=== PATIENT | male | born 1950 | race Two or more races ===

== ENCOUNTER 2021-03-21 11:57 | Inpatient (IN) | payer MEDICARE, OTHER ==
[~2021-03-21] VITALS: Ht 182.9 cm; Wt 97.0 kg
[2021-03-21] MEDS ORDERED: SODIUM CHLORIDE 0.9% 500 ML IVB ONE (12:15)
[2021-03-21] MEDS ORDERED: BACITRACIN TOP OINT 1 UD PKG TOP ONE (12:15)
[2021-03-21 13:18] LABS: Basophils # (auto) 0 10 ^3/uL (0-0.2); Basophils % (auto) 0.5 % (0.0-2.0); Eosinophils # (auto) 0 10 ^3/uL (0-0.8); Eosinophils % (auto) 0.2 % (0.0-7.0); Hematocrit 45.9 % (41.0-53.0); Hemoglobin 16.1 g/dL (13.5-17.5); Lymphocytes # (auto) 1.4 10 ^3/uL (0.4-5.4); Lymphocytes % (auto) 16.2 % (10.0-50.0); Mean Corpuscular Hemoglobin 31.3 pg (28.0-32.0); Mean Corpuscular Hgb Conc. 35.1 g/dL (32.0-36.0); Mean Corpuscular Volume 89.4 fL (80.0-100.0); Monocytes # (auto) 0.5 10 ^3/uL (0-1.3); Monocytes % (auto) 5.4 % (0.0-12.0); Neutrophils # (auto) 6.7 10 ^3/uL (1.6-8.6); Neutrophils % (auto) 77.7 % (37.0-80.0); Nucleated Red Blood Cells % 0.2 %; Red Blood Cells 5.14 10^6/uL (4.5-5.90); Red Cell Distribution Width 13.4 % (11.8-14.3); White Blood Cell 8.6 10^3/uL (4.4-10.8)
[2021-03-21 13:24] LABS: INR 0.99 (0.9-1.15); Partial Thromboplastin Time 26.2 sec (23.6-33.0)
[2021-03-21 14:18] LABS: Potassium 3.8 mmol/L (3.5-5.1)
[2021-03-21 14:26] LABS: Albumin 3.9 g/dL (3.4-5.0); BUN/Creatinine Ratio 13.9; Bilirubin, Total 0.6 mg/dL (0.2-1.0); Calcium 8.7 mg/dL (8.5-10.1); Total Protein 7.2 g/dL (6.4-8.2)
[2021-03-21] MEDS ORDERED: ASPirin 81 mg TAB PO ONE (15:00)
[2021-03-21] MEDS ORDERED: ACETAMINOPHEN 325 MG TAB PO PRN (15:45)
[2021-03-21] MEDS ORDERED: DEXTROSE (50%) 50ML SYRG IV PRN (15:45)
[2021-03-21] MEDS ORDERED: NITROGLYCERIN 0.4 MG SL TAB SL PRN (15:45)
[2021-03-21] MEDS ORDERED: HYDROcodone-ACET 5/325MG TAB PO PRN (15:45)
[2021-03-21] MEDS ORDERED: MORPHINE SULFATE INJECTION 2 MG/ML SYRG IV PRN ×2 (15:45)
[2021-03-21] MEDS ORDERED: SODIUM CHLORIDE 0.9% 1,000 ML IV SCH (15:45)
[2021-03-21 16:33] LABS: Urine Bacteria NONE SEEN /hpf (None Seen); Urine Blood Negative /uL (Negative); Urine Mucus FEW (None Seen); Urine Specific Gravity 1.024 (1.001-1.035); Urine WBC 1 /hpf (0 - 3)
[2021-03-21 16:45] LABS: Amphetamine Screen, Urine NEGATIVE (NEGATIVE); Barbiturate Scree,Urine NEGATIVE (NEGATIVE); Benzodiazephine Screen, Urine NEGATIVE (NEGATIVE); Cannabinoid Screen, Urine NEGATIVE (NEGATIVE); Cocaine Screen, Urine NEGATIVE (NEGATIVE); Opiate Scree,Urine NEGATIVE (NEGATIVE); Phencyclidine Screen, Urine NEGATIVE (NEGATIVE)
[2021-03-21] MEDS ORDERED: cloNIDine HCL 0.1 MG TAB PO PRN ×2 (16:45→18:45)
[2021-03-21] MEDS ORDERED: THIAMINE 100mg/ml INJ (200mg/2ml VIAL) IM ONE (16:45)
[2021-03-21] MEDS ORDERED: CYANOCOBALAMIN (B-12) 1000 MCG/1 ML VIAL IM ONE (16:45)
[2021-03-21] MEDS: ACCU-CHEK COMFORT CURVE STRIP VI SCH ×2 (16:51→22:02)
[2021-03-21] MEDS ORDERED: FOLIC ACID 1 MG, MULTIPLE VITAMIN 10 ML, MAGNESIUM SULF SDV 50% 8 MEQ, THIAMINE INJ 100... INJ ONE ×5 (17:00)
[2021-03-21] MEDS: InsuLIN REG 1unit/0.01ml Soln (100units/ml) SC SCH ×2 (17:01→22:00)
[2021-03-21] MEDS ORDERED: CLOPIDOGREL BISULFATE 75 MG TAB PO ONE (18:45)
[2021-03-21 20:14] VITALS: BP 184/91
[2021-03-21] MEDS: hydrALAZINE HCL 10 MG TAB PO PRN (20:50)
[2021-03-21 22:00] VITALS: BP 160/86
[2021-03-21] MEDS ORDERED: ATORVASTATIN 20 MG TAB PO SCH (22:00)
[2021-03-22 04:51] VITALS: BP 148/93
[2021-03-22] MEDS: InsuLIN REG 1unit/0.01ml Soln (100units/ml) SC SCH ×4 (06:12→21:11)
[2021-03-22] MEDS: ACCU-CHEK COMFORT CURVE STRIP VI SCH ×4 (06:12→21:04)
[2021-03-22 07:04] LABS: Basophils # (auto) 0 10 ^3/uL (0-0.2); Basophils % (auto) 0.6 % (0.0-2.0); Eosinophils # (auto) 0.1 10 ^3/uL (0-0.8); Eosinophils % (auto) 1.8 % (0.0-7.0); Hematocrit 41.6 % (41.0-53.0); Hemoglobin 14.5 g/dL (13.5-17.5); Lymphocytes # (auto) 1.8 10 ^3/uL (0.4-5.4); Lymphocytes % (auto) 32.2 % (10.0-50.0); Mean Corpuscular Hemoglobin 31.1 pg (28.0-32.0); Mean Corpuscular Hgb Conc. 34.8 g/dL (32.0-36.0); Mean Corpuscular Volume 89.4 fL (80.0-100.0); Monocytes # (auto) 0.5 10 ^3/uL (0-1.3); Monocytes % (auto) 9.3 % (0.0-12.0); Neutrophils # (auto) 3.2 10 ^3/uL (1.6-8.6); Neutrophils % (auto) 56.1 % (37.0-80.0); Nucleated Red Blood Cells % 0.2 %; Red Blood Cells 4.66 10^6/uL (4.5-5.90); Red Cell Distribution Width 13.2 % (11.8-14.3); White Blood Cell 5.7 10^3/uL (4.4-10.8)
[2021-03-22 07:13] LABS: Potassium 3.9 mmol/L (3.5-5.1)
[2021-03-22 07:19] LABS: Albumin 3.6 g/dL (3.4-5.0); BUN/Creatinine Ratio 11.7; Bilirubin, Total 0.8 mg/dL (0.2-1.0); Calcium 8.4 mg/dL (8.5-10.1); Total Protein 6.7 g/dL (6.4-8.2)
[2021-03-22 09:00] VITALS: BP 169/95
[2021-03-22] MEDS ORDERED: ENOXAPARIN SOD 40 MG/0.4 ML SYRINGE SC SCH (10:00)
[2021-03-22] MEDS ORDERED: SPIRONOLACTONE 25 MG TAB PO SCH (10:00)
[2021-03-22] MEDS: ASPirin 81 mg TAB PO SCH (10:02)
[2021-03-22] MEDS: LOSARTAN POTASSIUM 50 MG TAB PO SCH (10:05)
[2021-03-22] MEDS ORDERED: CLOPIDOGREL BISULFATE 75 MG TAB PO ONE (10:45)
[2021-03-22] MEDS ORDERED: chlordiazePOXIDE HCL 25 MG CAP PO SCH (10:45)
[2021-03-22] MEDS ORDERED: FOLIC ACID 1 MG TAB PO ONE (11:30)
[2021-03-22] MEDS ORDERED: MULTIPLE VITAMIN TAB PO ONE (11:30)
[2021-03-22] MEDS ORDERED: THIAMINE HCL 100 MG TAB PO ONE (11:30)
[2021-03-22 13:00] VITALS: BP 198/92
[2021-03-22] MEDS ORDERED: IOHEXOL 350 MG/ML 100ML IJ ONE (14:03)
[2021-03-22] MEDS: chlordiazePOXIDE HCL 25 MG CAP PO SCH ×2 (14:41→21:04)
[2021-03-22] MEDS: GABAPENTIN 100 MG CAP PO SCH ×2 (15:36→21:06)
[2021-03-22] MEDS: hydrALAZINE HCL 10 MG TAB PO PRN ×2 (16:10→21:07)
[2021-03-22 17:00] VITALS: BP 166/90
[2021-03-22] MEDS: metFORMIN HYDROCHLORIDE 500 MG TAB PO SCH (18:00)
[2021-03-22] MEDS: ATORVASTATIN 20 MG TAB PO SCH (21:06)
[2021-03-22 21:23] LABS: Cholesterol 162 mg/dL (< 200); HDL Cholesterol 31 mg/dL (40-59); LDL Cholesterol 97 mg/dL (< 100); Triglycerides 183 mg/dL (< 150)
[2021-03-22 22:00] VITALS: BP 182/85
[2021-03-22 22:29] VITALS: BP 173/92
[2021-03-22] MEDS ORDERED: amLODIPine BESYLATE 5 MG TAB PO ONE (23:30)
[2021-03-23 05:00] VITALS: BP 152/73
[2021-03-23] MEDS: ACCU-CHEK COMFORT CURVE STRIP VI SCH ×4 (06:24→22:43)
[2021-03-23] MEDS: InsuLIN REG 1unit/0.01ml Soln (100units/ml) SC SCH ×4 (06:24→22:43)
[2021-03-23] MEDS: GABAPENTIN 100 MG CAP PO SCH ×3 (06:26→22:41)
[2021-03-23 07:34] LABS: Cholesterol 168 mg/dL (< 200); HDL Cholesterol 36 mg/dL (40-59); LDL Cholesterol 98 mg/dL (< 100); Triglycerides 199 mg/dL (< 150)
[2021-03-23 07:54] LABS: Anion Gap 5 (5-15); Carbon Dioxide 24 mmol/L (21-32); Chloride 108 mmol/L (98-107); Glucose 163 mg/dL (74-106); Potassium 4.3 mmol/L (3.5-5.1); Sodium 137 mmol/L (136-145)
[2021-03-23 07:55] LABS: BUN/Creatinine Ratio 10.2; Blood Urea Nitrogen 11 mg/dL (7-18); Calcium 9.2 mg/dL (8.5-10.1); GFR African American 87 mL/min; GFR Non-African American 72 mL/min; Magnesium 2.3 mg/dL (1.6-2.6)
[2021-03-23] MEDS: metFORMIN HYDROCHLORIDE 500 MG TAB PO SCH ×2 (08:10→18:31)
[2021-03-23] MEDS: amLODIPine BESYLATE 5 MG TAB PO SCH ×2 (09:49→09:52)
[2021-03-23] MEDS: ASPirin 81 mg TAB PO SCH (09:49)
[2021-03-23] MEDS: FOLIC ACID 1 MG TAB PO SCH (09:50)
[2021-03-23] MEDS: THIAMINE HCL 100 MG TAB PO SCH (09:50)
[2021-03-23] MEDS: LOSARTAN POTASSIUM 50 MG TAB PO SCH (09:50)
[2021-03-23] MEDS: chlordiazePOXIDE HCL 25 MG CAP PO SCH ×2 (09:51→22:40)
[2021-03-23] MEDS: CLOPIDOGREL BISULFATE 75 MG TAB PO SCH (09:51)
[2021-03-23] MEDS: MULTIPLE VITAMIN TAB PO SCH (09:51)
[2021-03-23 12:00] VITALS: BP 154/92
[2021-03-23 16:00] VITALS: BP 140/85
[2021-03-23 22:00] VITALS: BP 144/83
[2021-03-23] MEDS: ATORVASTATIN 20 MG TAB PO SCH (22:41)
[2021-03-24 05:00] VITALS: BP 138/70
[2021-03-24] MEDS: GABAPENTIN 100 MG CAP PO SCH ×3 (05:13→22:16)
[2021-03-24] MEDS: InsuLIN REG 1unit/0.01ml Soln (100units/ml) SC SCH ×4 (06:33→22:53)
[2021-03-24] MEDS: ACCU-CHEK COMFORT CURVE STRIP VI SCH ×4 (06:33→22:16)
[2021-03-24] MEDS: metFORMIN HYDROCHLORIDE 500 MG TAB PO SCH ×2 (08:00→18:03)
[2021-03-24] MEDS ORDERED: MIDAZOLAM HCL 2MG/2ML 2ml VIAL (1mg/ml) IV ONE (08:45)
[2021-03-24] MEDS ORDERED: diphenhdrAMINE HCL 50 MG/1 ML VL IV ONE (08:45)
[2021-03-24] MEDS ORDERED: LIDOCAINE VISCOUS 2% 15ML UD MT ONE (08:45)
[2021-03-24] MEDS ORDERED: fentaNYL CITRATE 250 MCG/5 ML VL IV ONE (09:00)
[2021-03-24] MEDS: CLOPIDOGREL BISULFATE 75 MG TAB PO SCH (10:00)
[2021-03-24] MEDS: chlordiazePOXIDE HCL 25 MG CAP PO SCH ×2 (10:00→22:16)
[2021-03-24] MEDS: FOLIC ACID 1 MG TAB PO SCH (10:00)
[2021-03-24] MEDS: amLODIPine BESYLATE 5 MG TAB PO SCH (10:00)
[2021-03-24] MEDS: THIAMINE HCL 100 MG TAB PO SCH (10:00)
[2021-03-24] MEDS: ASPirin 81 mg TAB PO SCH (10:00)
[2021-03-24] MEDS: MULTIPLE VITAMIN TAB PO SCH (10:00)
[2021-03-24] MEDS: LOSARTAN POTASSIUM 50 MG TAB PO SCH (10:00)
[2021-03-24 10:05] VITALS: BP 148/78
[2021-03-24] MEDS ORDERED: CHL25C PO (14:26)
[2021-03-24] MEDS ORDERED: THIA100T10 PO (14:26)
[2021-03-24] MEDS ORDERED: FOLI1TAB6 PO (14:26)
[2021-03-24] MEDS ORDERED: ASPI1CHW15 PO (14:26)
[2021-03-24] MEDS ORDERED: AML5T PO (14:26)
[2021-03-24] MEDS ORDERED: MULTTAB99 PO (14:26)
[2021-03-24] MEDS ORDERED: GAB100C PO (14:26)
[2021-03-24] MEDS ORDERED: CLOP75TA28 PO (14:26)
[2021-03-24] MEDS ORDERED: METF-929 PO (14:29)
[2021-03-24] MEDS ORDERED: ATO40T PO (14:29)
[2021-03-24] MEDS ORDERED: LOSA-39 PO (14:29)
[2021-03-24 21:38] VITALS: BP 138/75
[2021-03-24] MEDS: ATORVASTATIN 20 MG TAB PO SCH (22:16)
[2021-03-25] MEDS: InsuLIN REG 1unit/0.01ml Soln (100units/ml) SC SCH ×4 (07:00→22:28)
[2021-03-25] MEDS: ACCU-CHEK COMFORT CURVE STRIP VI SCH ×4 (07:00→22:28)
[2021-03-25] MEDS: GABAPENTIN 100 MG CAP PO SCH ×3 (07:16→22:25)
[2021-03-25 09:00] VITALS: BP 135/69
[2021-03-25] MEDS: metFORMIN HYDROCHLORIDE 500 MG TAB PO SCH ×2 (09:23→17:44)
[2021-03-25] MEDS: THIAMINE HCL 100 MG TAB PO SCH (09:24)
[2021-03-25] MEDS: FOLIC ACID 1 MG TAB PO SCH (09:24)
[2021-03-25] MEDS: ASPirin 81 mg TAB PO SCH (09:24)
[2021-03-25] MEDS: LOSARTAN POTASSIUM 50 MG TAB PO SCH (09:25)
[2021-03-25] MEDS: chlordiazePOXIDE HCL 25 MG CAP PO SCH ×2 (09:25→22:25)
[2021-03-25] MEDS: MULTIPLE VITAMIN TAB PO SCH (09:25)
[2021-03-25] MEDS: amLODIPine BESYLATE 5 MG TAB PO SCH (09:27)
[2021-03-25] MEDS: CLOPIDOGREL BISULFATE 75 MG TAB PO SCH (09:27)
[2021-03-25 13:00] VITALS: BP_SYST 126; BP_SYST 141; BP_DIAS 68; BP_DIAS 70
[2021-03-25 17:00] VITALS: BP 126/70
[2021-03-25 22:00] VITALS: BP 124/79
[2021-03-25] MEDS: ATORVASTATIN 20 MG TAB PO SCH (22:25)
[2021-03-26 05:00] VITALS: BP 129/70
[2021-03-26] MEDS: GABAPENTIN 100 MG CAP PO SCH ×3 (06:00→22:30)
[2021-03-26] MEDS: ACCU-CHEK COMFORT CURVE STRIP VI SCH ×4 (06:58→22:30)
[2021-03-26] MEDS: InsuLIN REG 1unit/0.01ml Soln (100units/ml) SC SCH ×4 (06:59→22:31)
[2021-03-26] MEDS: ASPirin 81 mg TAB PO SCH (08:56)
[2021-03-26] MEDS: metFORMIN HYDROCHLORIDE 500 MG TAB PO SCH ×2 (08:56→17:41)
[2021-03-26] MEDS: FOLIC ACID 1 MG TAB PO SCH (08:56)
[2021-03-26] MEDS: LOSARTAN POTASSIUM 50 MG TAB PO SCH (08:57)
[2021-03-26] MEDS: THIAMINE HCL 100 MG TAB PO SCH (08:57)
[2021-03-26] MEDS: amLODIPine BESYLATE 5 MG TAB PO SCH (08:58)
[2021-03-26] MEDS: chlordiazePOXIDE HCL 25 MG CAP PO SCH ×2 (08:58→22:29)
[2021-03-26] MEDS: MULTIPLE VITAMIN TAB PO SCH (08:58)
[2021-03-26] MEDS: CLOPIDOGREL BISULFATE 75 MG TAB PO SCH (08:59)
[2021-03-26 09:06] VITALS: BP 154/81
[2021-03-26 13:00] VITALS: BP 150/84
[2021-03-26 20:00] VITALS: BP 118/72
[2021-03-26 22:00] VITALS: BP 118/72
[2021-03-26] MEDS: ATORVASTATIN 20 MG TAB PO SCH (22:30)
[2021-03-27 05:00] VITALS: BP 117/71
[2021-03-27] MEDS: GABAPENTIN 100 MG CAP PO SCH ×2 (05:53→14:26)
[2021-03-27] MEDS: ACCU-CHEK COMFORT CURVE STRIP VI SCH ×3 (06:26→17:28)
[2021-03-27] MEDS: InsuLIN REG 1unit/0.01ml Soln (100units/ml) SC SCH ×3 (06:34→18:03)
[2021-03-27 09:01] VITALS: BP 116/63
[2021-03-27] MEDS: metFORMIN HYDROCHLORIDE 500 MG TAB PO SCH ×2 (09:27→18:03)
[2021-03-27] MEDS: ASPirin 81 mg TAB PO SCH (09:27)
[2021-03-27] MEDS: THIAMINE HCL 100 MG TAB PO SCH (09:28)
[2021-03-27] MEDS: FOLIC ACID 1 MG TAB PO SCH (09:28)
[2021-03-27] MEDS: LOSARTAN POTASSIUM 50 MG TAB PO SCH (09:28)
[2021-03-27] MEDS: MULTIPLE VITAMIN TAB PO SCH (09:29)
[2021-03-27] MEDS: chlordiazePOXIDE HCL 25 MG CAP PO SCH (09:29)
[2021-03-27] MEDS: amLODIPine BESYLATE 5 MG TAB PO SCH (09:30)
[2021-03-27] MEDS: CLOPIDOGREL BISULFATE 75 MG TAB PO SCH (09:30)
[2021-03-27 13:00] VITALS: BP 136/84
[2021-03-27 16:30] VITALS: BP 116/93
[2021-03-27 17:50] VITALS: BP 116/93
[2021-03-27 20:00] VITALS: BP 119/74
== END 2021-03-27 22:05 | DRG 64 ==
LOC: ER 11:57 → TELE 15:36 → TELE-WESTW 18:17 → OBSVTOIN 03-23 22:06
PROVIDERS: ADMIT Internal Medicine; ATTEND Internal Medicine Geriatric Medicine
PROC: B246ZZ4 Ultrasonography of Right and Left Heart, Transesophageal (ICD-10-PCS; principal; 2021-03-24)
DX: I63.9 Cerebral infarction, unspecified (principal); G93.41 Metabolic encephalopathy; I16.1 Hypertensive emergency; E78.5 Hyperlipidemia, unspecified; G62.9 Polyneuropathy, unspecified; I65.29 Occlusion and stenosis of unspecified carotid artery; R47.01 Aphasia; Z20.822 Contact with and (suspected) exposure to COVID-19; F17.210 Nicotine dependence, cigarettes, uncomplicated; S51.011A Laceration without foreign body of right elbow, initial encounter; W18.39XA Other fall on same level, initial encounter; E11.65 Type 2 diabetes mellitus with hyperglycemia; Y93.89 Activity, other specified; Y92.098 Other place in other non-institutional residence as the place of occurrence of the external cause; Y99.8 Other external cause status; Z79.82 Long term (current) use of aspirin; Z79.899 Other long term (current) drug therapy; Z86.73 Personal history of transient ischemic attack (TIA), and cerebral infarction without residual deficits; Z79.02 Long term (current) use of antithrombotics/antiplatelets; Z79.84 Long term (current) use of oral hypoglycemic drugs
CPT/HCPCS: 36415; 70450; 70496; 70498; 70551; 71045; 73080; 80048; 80053; 80061; 80307; 80320; 81001; 82140; 82962; 83036; 83735; 84484; 85025; 85610; 85730; 87426; 93005; 93306; 93312; 93886; 96360; 96361; 96372; 97116; 97163; 97530; 99152; G0378; J1815; J2250

== ENCOUNTER 2021-04-16 16:00 | Emergency (ER) | payer MEDICARE ==
[~2021-04-16] VITALS: Ht 190.5 cm; Wt 108.9 kg
[~2021-04-16 16:00] MED LIST: AML5T PO; ASPI1CHW15 PO; ATO40T PO; CLOP75TA28 PO; FOLI1TAB6 PO; GAB100C PO; LOSA-39 PO; METF-929 PO; MULTTAB99 PO; THIA100T10 PO
[2021-04-16 20:15] VITALS: BP 131/74
== END 2021-04-17 05:00 | disposition home or self-care (01) ==
LOC: ER 16:00 → EDBD 16:00 → ER 04-17 05:00
DX: S09.8XXA Other specified injuries of head, initial encounter (principal); E11.9 Type 2 diabetes mellitus without complications; I10 Essential (primary) hypertension; Z86.73 Personal history of transient ischemic attack (TIA), and cerebral infarction without residual deficits; W01.0XXA Fall on same level from slipping, tripping and stumbling without subsequent striking against object, initial encounter; Y93.89 Activity, other specified; Y92.89 Other specified places as the place of occurrence of the external cause; Y99.8 Other external cause status

== ENCOUNTER 2024-12-20 17:58 | Emergency (ER) | payer OTHER ==
[~2024-12-20] VITALS: Ht 182.9 cm; Wt 77.0 kg
[~2024-12-20 17:58] MED LIST changes: +APIX5TAB PO; +ASPI-736 PO; -ASPI1CHW15 PO; -ATO40T PO; +ATOR-507 PO; +CEPH250C PO; +FOLI-119 PO; -FOLI1TAB6 PO; -LOSA-39 PO; +LOSA-535 PO; +MET25T PO
--- NOTE | 2024-12-20 20:14 | ED.PDOC ---
History of Present Illness HPI Comments HPI: 74-year-old male presents to the ER with daughter and with a chief complaint of generalized weakness. Daughter reports on the patient having had a low-grade fever of 99 associated with multiple episodes of weakness, confusion and hematuria since Wednesday of 12/16/2024. Daughter states that the patient has a not been able to get out of bed easily as well as having a loss of appetite, and a fall earlier today for which the patient has a abrasion to the right shoulder. Denies any other symptoms at this time. Denies chills, fever, N/V/D, SOB, CP. No other associated symptoms, modifiers, recent injuries or sick contacts present at this time. Past Medical History: AFib(takes Eliquis), CVA, high lipids, hypertension, diabetes Past Surgical History: Cardiac stent Social History: Denies any RENETTA: HPI: Poor Historian. 74-year-old male brought in by his daughter for evaluation of at least 4-5 days of weakness episodes of confusion and decreased p.o. intake. Patient has been weak unable to ambulate. He did suffer a nontraumatic fall few days ago without any head or neck injury or loss of consciousness. He is on Eliquis. An episode of blood in the urine. Patient denies any pain anywhere in his body. pt is wearing a diaper. Past Medical History: Past Surgical History: REVIEW OF SYSTEMS: CONSTITUTIONAL: Denies acute: , diaphoresis, chills, HEAD: Denies acute: headache, photophobia Eyes: Denies acute: Double vision, vision loss, eye pain, eye discharge. EARS: Denies acute: tinnitus, hearing loss, ear discharge, ear pain, THROAT: Denies acute: sore throat, swelling, difficulty swallowing , pain with swallowing, change in voice. NECK: Denies acute: neck pain, neck swelling, stiff neck. HEART: Denies acute : chest pain, palpitations, LUNGS: Denies acute: SOB, wheezing, cough, hemoptysis ABDOMEN: Denies acute: abdominal pain, Nausea, Vomiting, diarrhea, melena , hematemesis, hematochezia SKIN: Denies acute: rash, redness, lesions, itchiness. EXTREMITIES: Denies acute: calf pain, numbness, tingling, weakness, denies pain in extremity. Denies acute: Low back pain. Neuro: Denies acute: focal neurological deficit, motor or sensory focal neurological deficit, tremors, seizure like activity, , dizziness, loss of bowel or bladder function, cauda equina like symptoms. : Denies acute: dysuria, , flank pain, increase in urinary frequency. PSYCH: Denies acute: hallucination, suicidal ideation, homicidal ideation. PHYSICAL EXAM: General: ----mild----acute distress, awake and alert. Appears weak and frail Head: normocephalic, atraumatic. No raccoon's eyes, no tipton sign. Neck: supple, trachea is midline, no swelling. Throat: Normal phonation. Eyes:, no erythema, no purulent discharge, no proptosis, no icterus. Heart: regular rate, regular rhythm, no significant murmur appreciated. Lungs: no apparent respiratory distress, Able to speak in full sentences. No wheezing, no rhonchi, no crackles. No stridors Clear to auscultation bilaterally. Abdomen: non tender to palpation, non distended, soft, no guarding, no rebound, + bowel sounds. Neuro: Awake, Alert, oriented to name, self, situation, follows commands GCS=15. Speech is normal. Skin: no petechia, no purpura, no cyanosis, non-pale, not jaundice. Lower extremities: --no - Pitting edema no deformity, no focal swelling, no calf TTP. Makes eye contact. moves all four extremities. Face: no apparent facial droop. ED COURSE: DISCLAIMER: This medical document was created using an electronic medical record system with voice recognition software and computerized dictation system. Although this document has been carefully reviewed, there might still be some phonetic and typographical errors. Occasional wrong-word or "sound-alike" substitutions may h ave occurred due to the inherent limitations of voice recognition software. These areas are purely typographical due to imperfections of the software programs and do not reflect any compromise in the patient's medical care. Please read the chart carefully and recognize, using context, where these substitutions have occurred. Chief Complaint: General Weakness Time Seen by MD: 20:10 Primary Care Provider: Unknown Reviewed Notes: Nurses Notes, Medications, Allergies Allergies: Coded Allergies: NO KNOWN ALLERGIES (Unverified , 03/21/21) Home Meds Active Scripts Cephalexin (KEFLEX CAPSULE) 250 Mg Cp, 500 MG PO TID for 7 Days, #21 CAP Prov:NIKKI ABDUL MD 04/30/23 Atorvastatin Calcium (Lipitor) 40 Mg Tab, 1 TAB PO QPM, #30 TAB 1 Refill Prov:MIKE PUGA MD 03/24/21 Losartan Potassium (Losartan Potassium) 100 Mg Tab, 1 TAB PO DAILY, #30 TAB 5 Refills Prov:MIKE PUGA MD 03/24/21 Metformin HCl (Metformin Hydrochloride) 1,000 Mg Tab, 1000 MG PO BID for 30 Days, #60 TAB Prov:MIKE PUGA MD 03/24/21 Thiamine Hcl (VITAMIN B-1) 100 Mg Tb, 100 MG PO DAILY for 30 Days, #30 TAB Prov:MIKE PUGA MD 03/24/21 Multiple Vitamin (Mvi Tab) 1 Tab Tb, 1 TAB PO DAILY for 30 Days, #30 TAB Prov:MIKE PUGA MD 03/24/21 Gabapentin (Gabapentin) 100 Mg Cap, 100 MG PO TID for 30 Days, #90 CAP Prov:MIKE PUGA MD 03/24/21 Folic Acid (Folic Acid) 1 Mg Tab, 1 MG PO DAILY for 30 Days, #30 TAB Prov:MIKE PUGA MD 03/24/21 Clopidogrel Bisulfate (Plavix) 75 Mg Tab, 75 MG PO DAILY for 30 Days, #30 TAB Prov:MIKE PUGA MD 03/24/21 Aspirin (Aspirin Low Strength) 81 Mg Chw, 81 MG PO DAILY for 100 Days, #100 TAB.CHEW Prov:MIKE PUGA MD 03/24/21 Amlodipine Besylate (NORVASC TABLET) 5 Mg Tb, 5 MG PO DAILY for 30 Days, #30 TAB Prov:MIKE PUGA MD 03/24/21 Reported Medications Metoprolol Tartrate (Lopressor) 25 Mg Tb, 1 TAB PO BID 04/29/23 Apixaban Base (ELIQUIS) 5 Mg Tab, 5 MG PO BID, TAB 04/29/23 Information Source: Patient Mode of Arrival: Wheelchair Was a procedure done? Was a procedure done?: No X-Ray, Labs, Meds, VS Vital Signs Date Time Temp Pulse Resp B/P (MAP) Pulse Ox O2 Delivery O2 Flow Rate FiO2 12/20/24 22:00 63 17 120/72 (88) 93 12/20/24 20:27 Room Air* 0 21 12/20/24 19:42 98.4 88 18 118/65 (82) 96 98.4 12/20/24 18:10 101 Lab Test 12/20/24 23:41 12/20/24 21:10 12/20/24 20:00 Range/Units Urine Color Light-yellow Yellow Urine Clarity Clear Clear Urine pH 5.5 5.0-9.0 Urine Specific [place] 1.030 1.001-1.035 Urine Protein Trace H Negative Urine Ketones 1+ H Negative Urine Blood 2+ H Negative /uL Urine Nitrite 2+ H Negative Urine Bilirubin Negative Negative Urine Urobilinogen Normal Negative mg/dL Urine Leukocyte Esterase 1+ Negative /uL Urine RBC 31 0 - 3 /hpf Urine WBC Clumps Present None Seen /hpf Urine Microscopic WBC 91 H 0-3 /HPF Urine Squamous Epithelial Cells None seen <5 /hpf Urine Bacteria None seen None Seen /hpf Urine Glucose 4+ H Normal mg/dL Troponin I High Sensitivity 3 L 4 </=54 ng/L White Blood Count 6.6 4.4-10.8 10^3/uL Red Blood Count 4.49 L 4.5-5.90 10^6/uL Hemoglobin 14.5 13.5-17.5 g/dL Hematocrit 40.1 L 41.0-53.0 % Mean Corpuscular Volume 89.4 80.0-100.0 fL Mean Corpuscular Hemoglobin 32.3 H 28.0-32.0 pg Mean Corpuscular Hemoglobin Concent 36.1 H 32.0-36.0 g/dL Red Cell Distribution Width 14.2 11.8-14.3 % Platelet Count 223 140-450 10^3/uL Mean Platelet Volume 7.5 6.9-10.8 fL Neutrophils (%) (Auto) 77.1 37.0-80.0 % Lymphocytes (%) (Auto) 10.6 10.0-50.0 % Monocytes (%) (Auto) 11.5 0.0-12.0 % Eosinophils (%) (Auto) 0.6 0.0-7.0 % Basophils (%) (Auto) 0.2 0.0-2.0 % Neutrophils # (Auto) 5.1 1.6-8.6 10 ^3/uL Lymphocytes # (Auto) 0.7 0.4-5.4 10 ^3/uL Monocytes # (Auto) 0.8 0-1.3 10 ^3/uL Eosinophils # (Auto) 0 0-0.8 10 ^3/uL Basophils # (Auto) 0 0-0.2 10 ^3/uL Nucleated Red Blood Cells 0.1 % Sodium Level 139 136-145 mmol/L Potassium Level 3.9 3.5-5.1 mmol/L Chloride Level 105 98-107 mmol/L Carbon Dioxide Level 22 20-31 mmol/L Anion Gap 12 5-15 Blood Urea Nitrogen 19 9-23 mg/dL Creatinine 1.23 0.700-1.30 mg/dL Glomerular Filtration Rate Calc 61 >90 mL/min BUN/Creatinine Ratio 15.4 10.0-20.0 Serum Glucose 129 H 74-106 mg/dL Lactic Acid Level 1.5 0.4-2.0 mmol/L Calcium Level 9.0 8.7-10.4 mg/dL Total Bilirubin 0.6 0.2-1.0 mg/dL Aspartate Amino Transferase (AST) 22 13-40 U/L Alanine Aminotransferase (ALT) 24 7-40 U/L Alkaline Phosphatase 136 H 46-116 U/L Total Protein 7.3 5.7-8.2 g/dL Albumin 4.0 3.2-4.8 g/dL Current Medications Medications (Trade) Dose Ordered Sig/Victorino Route Start Time Stop Time Status Last Admin Sodium Chloride 1,000 ml @ 1,000 mls/hr Q1H ONCE IV 12/20/24 20:00 12/20/24 20:59 DC 12/20/24 20:25 Ceftriaxone Sodium 50 ml @ 100 mls/hr ONCE ONCE IV 12/20/24 20:00 12/20/24 20:29 DC 12/20/24 20:25 Time of 1ST Reevaluation: 20:40 Reevaluation 1ST: Unchanged Time of 2ND Reevaluation: 00:08 (The case was discussed with the admitting team (HPI, physical exam, labs and diagnostic tests that were available at the time of disposition, ED course, treatment plan) on the phone. They agreed to evaluate the patient and assume care of this patient from this point forward. ---andres. ) Patient Education/Counseling: Diagnosis, Treatment Family Education/Counseling: Diagnosis, Treatment SEPSIS Sepsis Screen Date sepsis recognized/suspect: Dec 20, 2024 Time Sepsis recognized/suspect: 1802 Recent Procedure: No On Antibiotic Therapy: No Respiratory Rate >20: No Heart Rate >90: No Temp<36 C (96.8 F) or >38.3 C: No SBP <90 or MAP <65 mmHG: No New Acute Mental Status Change: No Is the patient on CPAP, BIPAP,: No Physician Orders Weed Burner (12/20/24 ) Chest Portable (12/20/24 19:51) Electrocardigram (12/20/24 19:51) Blood Culture (12/20/24 19:51) Head Without Contrast (12/20/24 20:24) Vital Signs Date Time Temp Pulse Resp B/P (MAP) Pulse Ox O2 Delivery O2 Flow Rate FiO2 12/20/24 22:00 63 17 120/72 (88) 93 12/20/24 20:27 Room Air* 0 21 12/20/24 19:42 98.4 88 18 118/65 (82) 96 98.4 12/20/24 18:10 101 Laboratory Tests Test 12/20/24 20:00 Lactic Acid Level 1.5 mmol/L (0.4-2.0) White Blood Count 6.6 10^3/uL (4.4-10.8) Medications Medications Dose Ordered Sig/Victorino Route Start Time Stop Time Status Last Admin Dose Admin Ceftriaxone Sodium 50 ml @ 100 mls/hr ONCE ONCE IV 12/20/24 20:00 12/20/24 20:29 DC 12/20/24 20:25 Sodium Chloride 1,000 ml @ 1,000 mls/hr Q1H ONCE IV 12/20/24 20:00 12/20/24 20:59 DC 12/20/24 20:25 Departure 1 Departure Time of Disposition: 20:22 Impression: Primary Impression: UTI (urinary tract infection) Disposition: ADMITTED INPATIENT Admit to: Tele Condition: Guarded Discharged With: Self, Relative Critical Care Note Critical Care Time?: No I personally scribed for KETAN POTTS DO ([email or web address]) on 12/20/24 at 20:14. Electronically submitted by Ned Fontenot ([email or web address]). KETAN POTTS DO Dec 20, 2024 20:14
[2024-12-20] MEDS: SODIUM CHLORIDE 0.9% 1,000 ML IV ONE (20:25)
--- NOTE | 2024-12-20 20:35 | ECG ---
[facility] Test Date: 2024-12-20 Test Time: 18:10:55 Pat Name: MAXINE JACKSON Department: ED Room: Gender: M Wood Miller: IC : 1950 Requested By: KETAN POTTS Order Number: [id number] Reading MD: Ozzie Nolan Measurements Intervals [place] Rate: 101 P: 73 ND: 178 QRS: -31 QRSD: 90 T: -5 QT: 342 QTc: 444 Interpretive Statements Sinus tachycardia Left axis deviation Borderline repolarization abnormality Electronically Signed On 12-22-2024 15:44:56 PST by Ozzie Nolan Please click the below link to view image of tracing.
[2024-12-20 20:39] LABS: Hematocrit 40.1 % (41.0-53.0); Hemoglobin 14.5 g/dL (13.5-17.5); Mean Corpuscular Hemoglobin 32.3 pg (28.0-32.0); Mean Corpuscular Volume 89.4 fL (80.0-100.0); Nucleated Red Blood Cells % 0.1 %
--- NOTE | 2024-12-20 20:43 | DVH ---
CLINICAL HISTORY: weak TECHNIQUE: Single view of the chest was obtained. COMPARISON: XY CHEST PORTABLE on DOS: 04/29/23 FINDINGS: The heart size and pulmonary vasculature are normal. The lungs are clear. IMPRESSION: NO ACUTE CARDIOPULMONARY PROCESS.
[2024-12-20 20:44] LABS: Alanine Aminotransferase 24 U/L (7-40); Albumin 4.0 g/dL (3.2-4.8); Anion Gap 12 (5-15); BUN/Creatinine Ratio 15.4 (10.0-20.0); Bilirubin, Total 0.6 mg/dL (0.2-1.0); Blood Urea Nitrogen 19 mg/dL (9-23); Calcium 9.0 mg/dL (8.7-10.4); Carbon Dioxide 22 mmol/L (20-31); Chloride 105 mmol/L (98-107); Potassium 3.9 mmol/L (3.5-5.1); Sodium 139 mmol/L (136-145); Total Protein 7.3 g/dL (5.7-8.2)
[2024-12-20 20:50] LABS: Alkaline Phosphatase 136 U/L (46-116); Glucose 129 mg/dL (74-106)
--- NOTE | 2024-12-20 20:54 | DVH ---
EXAM: CT HEAD WITHOUT CONTRAST INDICATION: weak TECHNIQUE: CT of the head without intravenous contrast. Radiation Dose : 1. Head: CT Dose: CTDI volume is 65.89 mGy. Dose-length product is 1884.24 mGy*cm The dose indicators for CT are the volume Computed Tomography (CT) Dose Index (CTDIvol) and the Dose Length Product (DLP), and are measured in units of mGy and mGy-cm, respectively. These indicators are not patient dose, but values generated from the CT scanner acquisition factors. The report includes radiation exposure data for exposures received during this examination. COMPARISON: CT HEAD WITHOUT CONTRAST on DOS: 04/28/23 FINDINGS: Motion degraded evaluation. No acute territorial infarct, intracranial hemorrhage, or mass effect. There are global involutional changes with compensatory prominence of the ventricles and sulci. Patchy periventricular and subcortical white matter hypoattenuation is nonspecific but may be related to small vessel ischemic disease. Chronic deep cerebral lacunar infarcts. The orbits are normal. The paranasal sinuses and mastoid air cells are clear. The osseous structures are unremarkable. IMPRESSION: 1. Motion degraded evaluation. Within this limitation, there is no evidence of acute territorial infarct, large intracranial hemorrhage, or mass effect. 2. Age-related involutional changes. Chronic ischemic changes. 3. If clinical symptoms persist, MRI may be beneficial in further evaluation. Radiation optimization: All CT scans at this facility use at least one of these dose optimization techniques: automated exposure control mA and/or kV adjustment per patient size (includes targeted exams where dose is matched to clinical indication) or iterative reconstruction.
[2024-12-21 00:36] LABS: Urine Protein, UAD TRACE (Negative); Urine WBC Clumps PRESENT /hpf (None Seen)
[2024-12-21] MEDS ORDERED: CIPR250T3 PO (01:40)
[2024-12-21 02:51] VITALS: BP 141/69; PULSE 84; RESP 18; TEMP 98.2; O2SAT 95
--- NOTE | 2024-12-21 09:56 | DVHDS2 ---
Physician Discharge Progress N Final Diagnosis: UTI Operations or Procedures: Operations or Procedures none Other Interventions Other Interventions lab results, CXR, CT Consultations: Consultations none Commentary: Commentary 74 y.o. male was brought to the ER c/o generalized weakness, loss of appetite, intermittent confusion, low grade fever and hematuria for the past 3 days. The patient denied CP, SOB, AP and other symptoms. His head CT and CXR showed no acute changes. Lab results were unremarkable, except UA that confirmed UTI. Patient was given IV Rocephin. Patient informed that he usually ambulated using a walker. In the ER his VS remained stable, patient was A&Ox4. Due to the weakness and recent fall, he was offered to be transferred to a SNF for further rehabilitation and Ab therapy but the family preferred to continue it at home. The prescription for oral Abx was sent to his pharmacy and [facility] top case assembler was notified to schedule an appointment for PMD in 3 days and schedule home PT for ambulation assistance Condition on Discharge: Stable Disposition: Home SNF Discharge Will this Physician continue t: No Discharge Instructions: Diet: Consistent carbohydrate Activity: No Restrictions, As Tolerated Follow Up/Referral: PMD in 3 days and home PT to be scheduled by [facility] top case assembler Medications: Ciprofloxacin 250 mg PO BID for 6 days, prescription was sent to the [facility] Follow Up Care: Discharge Statement: "Patient was advised to return to the ER or call 911 if any headaches, dizziness, shortness of breath, chest pain, abdominal pain, bleeding, fevers, or worsening of medical condition. Patient was counseled about treatment plan, medications, possible side effects, patientverbalized understanding. All questions were answered to the best of my ability. This discharge took greater then 30 minutes in planning, reviewing documentation, counseling the patient, and discussing with other team members." AGNES MARTIN MD Dec 21, 2024 09:56
== END 2024-12-21 02:53 | disposition home or self-care (01) ==
LOC: EEVIPCON 17:58 → ER 17:58
DX: N39.0 Urinary tract infection, site not specified (principal); E11.9 Type 2 diabetes mellitus without complications; I10 Essential (primary) hypertension; R42 Dizziness and giddiness; Z79.899 Other long term (current) drug therapy; Z86.73 Personal history of transient ischemic attack (TIA), and cerebral infarction without residual deficits
CPT/HCPCS: 36415; 70450; 71045; 80053; 81001; 83605; 84484; 85025; 87040; 93005; 96365; 99285; J0696